=== PATIENT | female | born 1980 | race African-American/Black ===

== ENCOUNTER 2019-12-03 13:32 | Emergency (ER) | payer MEDICAID ==
[~2019-12-03] VITALS: Ht 177.8 cm; Wt 108.9 kg
[2019-12-03] MEDS ORDERED: Ketorolac 30mg Inj IM ONE (13:45)
[2019-12-03] MEDS ORDERED: Methocarbamol 750mg tab ORAL ONE (13:45)
--- NOTE | 2019-12-03 14:00 | NUR ---
ED Nurse Note:pt. was BIBA from home with right ankle pain and deformity, s/p fall on the stairs today, pain meds were given, x-ray done
[2019-12-03] MEDS ORDERED: HYDROcodone/Acetamin 7.5/325 tab ORAL ONE (14:15)
--- NOTE | 2019-12-03 14:44 | Emergency Room Report ---
History of Present Illness General Chief Complaint: Lower Extremity Injury Source: Patient Present Illness HPI 39-year-old female with no nausea medical history brought in by medical advisor due to fall and injury of right ankle. Patient reports that she was getting out of her house that she missed a step and tripped and does not know what happened next. Denies any head injury or loss of consciousness. Temporarily splint is already been applied by paramedics. Obvious deformity noted right ankle. Patient is neurovascularly intact. Has full range of motion of toes. Rates the pain 10 out of 10 without radiation. Patient has bony tenderness in multiple location. Denies other injuries. Denies . Allergies: Coded Allergies: No Known Allergies (Unverified , 12/03/19) COVID-19 Screening Contact w/high risk pt: No Experienced COVID-19 symptoms?: No COVID-19 Testing performed [employer]GER [employer]: Yes - unk month COVID-19 Screening: Negative COVID-19 COVID-19 Testing Source: [facility] Patient History Past Medical History: see triage record Past Surgical History: none Pertinent Family History: none Now: No Immunizations: UTD Reviewed Nursing Documentation: PMH: Agreed; PSxH: Agreed Nursing Documentation-PMH Past Medical History: No History, Except For Hx Asthma: Yes Review of Systems All Other Systems: negative except mentioned in HPI Physical Exam Vital Signs Date Time Temp Pulse Resp B/P (MAP) Pulse Ox O2 Delivery O2 Flow Rate FiO2 12/03/19 13:24 98.4 80 20 113/60 (77) 98 Room Air Sp02 EP Interpretation: reviewed, normal General Appearance: no apparent distress, alert, GCS 15, non-toxic Head: normocephalic, atraumatic Eyes: bilateral eye normal inspection, bilateral eye PERRL ENT: hearing grossly normal, normal pharynx, no angioedema, normal voice Neck: full range of motion, no bony tend, supple/symm/no masses Respiratory: chest non-tender, no wheezing Cardiovascular #1: regular rate, rhythm, no edema Cardiovascular #2: 2+ dorsalis pedis (R), 2+ dorsalis pedis (L) Gastrointestinal: soft Musculoskeletal: back normal, no calf tenderness, tender - Right distal fibula, right mid tibia, right proximal fibula,, other - Patient is neurovascularly intact Neurologic: alert, motor strength/tone normal, oriented x3, sensory intact, responsive, speech normal Psychiatric: judgement/insight normal, memory normal, mood/affect normal, no suicidal/homicidal ideation Skin: no rash Lymphatic: no adenopathy Procedures Splinting Splinting : Consent: Verbal Location: Right lower leg Hand-Made Type: plaster Splint: posterior long Pre-Proc Neuro Vasc Exam: normal Post-Proc Neuro Vasc Exam: normal Patient Tolerated: Well Complications: None Progress With stirrups and crutches Medical Decision Making PA Attestation All my diagnosis and treatment plans were reviewed ad discussed with my supervising physician Dr. Joseph Diagnostic Impression: Primary Impression: Fracture of distal end of right tibia Additional Impressions: Avulsion fracture of distal end of fibula Injury, crush, foot ER Course 39-year-old female with no nausea medical history brought in by medical advisor due to fall and injury of right ankle. Patient reports that she was getting out of her house that she missed a step and tripped and does not know what happened next. Denies any head injury or loss of consciousness. Temporarily splint is already been applied by paramedics. Obvious deformity noted right ankle. Patient is neurovascularly intact. Has full range of motion of toes. Rates the pain 10 out of 10 without radiation. Patient has bony tenderness in multiple location. Denies other injuries. Denies . Ddx considered but are not limited to: ankle sprain, ankle strain, ankle fracture, ankle contusion Vital signs: are WNL, pt. is afebrile H&PE are most consistent with: Displaced fracture of right proximal fibula, mid to distal tibia, and avulsion fracture of right distal fibula ORDERS: Right ankle, foot, knee x-ray, [place] 5, ibuprofen 800 ED INTERVENTIONS: [place] 5, Toradol, Robaxin DISCHARGE: At this time pt. is stable for d/c to home. Will provide printed patient care instructions, and any necessary prescriptions. Care plan and follow up instructions have been discussed with the patient prior to discharge. Patient follow-up with holistic specialist, gave a list of orthopedic clinics that patient can follow-up with contact, patient is ambulated to the wheelchair, splint was applied. Advised patient to return to the emergency room if any worsening symptoms. Take splint off if any pressure underneath the splint. Other X-Ray Diagnostic Results Other X-Ray Diagnostic Results #1: X-Ray ordered: Right ankle # of Views/Limited Vs Complete: 3 View Indication: Pain EP Interpretation: Yes PA Xray: Interpretation reviewed, by supervising , and agrees with findings. Interpretation: other - Fracture of mid to distal tibia, fracture of distal fibula Impression: Other - Displaced fracture of right ankle Electronically Signed by: Vasyl MORENO Scribe Text RIGHT ANKLE, 3 views INDICATION: Trauma COMPARISON: None FINDINGS: 2 views of the right ankle are obtained. Displaced fracture of the distal tibia diaphysis. Bone mineralization is within normal limits. Joint spaces are preserved. . No radio-opaque foreign bodies. IMPRESSION: Acute displaced fracture of the distal right tibia diaphysis. Other X-Ray Diagnostic Results #2: X-Ray ordered: Right foot # of Views/Limited Vs Complete: 3 View Indication: Pain EP Interpretation: Yes PA Xray: Interpretation reviewed, by supervising MD, and agrees with finding s. Interpretation: no dislocation, no soft tissue swelling, no fractures Impression: Other - Displaced fracture of ankle Electronically Signed by: Vasyl MORENO Scribe Text INDICATION: Trauma COMPARISON: None FINDINGS: Fracture of the distal tibia with no acute fracture of the right foot. Bone mineralization is within normal limits. Joint spaces are preserved. Soft tissues within normal limits. No radio-opaque foreign bodies. IMPRESSION: Fracture of the distal tibia with displacement. Metacarpals and carpal bones appear intact. Other X-Ray Diagnostic Results #3: X-Ray ordered: Right knee # of Views/Limited Vs Complete: 3 View Indication: Pain EP Interpretation: Yes PA Xray: Interpretation reviewed, by supervising , and agrees with findings. Interpretation: other - Fracture of proximal right fibula displaced Impression: Other - Displaced fracture of right fibula Electronically Signed by: Vasyl MORENO Scribe Text RIGHT KNEE, one view INDICATION: Trauma COMPARISON: None FINDINGS: 1 view of the right knee are obtained. Acute displaced fracture of the proximal right fibula. Bone mineralization is within normal limits. Joint spaces are preserved. No radio-opaque foreign bodies. IMPRESSION: Acute displaced fracture of the proximal right fibula Last Vital Signs Date Time Temp Pulse Resp B/P (MAP) Pulse Ox O2 Delivery O2 Flow Rate FiO2 12/03/19 13:24 98.4 80 20 113/60 (77) 98 Room Air Disposition: HOME, SELF-CARE Condition: Stable Scripts Ibuprofen (Ibu) 800 Mg Tablet 800 MG PO TID, #30 TAB Prov: Vasyl Henson 12/03/19 Hydrocodone Bit/Acetaminophen 5-325* (NORCO 5-325 TABLET*) 1 Each Tablet 1 TAB ORAL Q6H PRN for FOR PAIN for 5 Days, #20 TAB 0 Refills Prov: Vasyl Henson 12/03/19 Patient Instructions: Ankle Fracture With Rehab-SportsMed, Crush Injury, Fing ers or Toes Additional Instructions: Take medication as directed, follow-up with holistic specialist, keep splint on, if worsening symptoms, return to the emergency Vasyl Henson Dec 03, 2019 14:44
[2019-12-03] MEDS ORDERED: IBU800 MG PO (14:46)
[2019-12-03] MEDS ORDERED: NORCO 5-325 TA1 EAC1 ORAL (14:46)
--- NOTE | 2019-12-03 14:50 | Diagnostic Imaging Report ---
FILM RIGHT ANKLE RIGHT ANKLE, 3 views INDICATION: Trauma COMPARISON: None FINDINGS: 2 views of the right ankle are obtained. Displaced fracture of the distal tibia diaphysis. Bone mineralization is within normal limits. Joint spaces are preserved. . No radio-opaque foreign bodies. IMPRESSION: Acute displaced fracture of the distal right tibia diaphysis.
--- NOTE | 2019-12-03 14:52 | Diagnostic Imaging Report ---
FILM RIGHT KNEE RIGHT KNEE, one view INDICATION: Trauma COMPARISON: None FINDINGS: 1 view of the right knee are obtained. Acute displaced fracture of the proximal right fibula. Bone mineralization is within normal limits. Joint spaces are preserved. No radio-opaque foreign bodies. IMPRESSION: Acute displaced fracture of the proximal right fibula
[2019-12-03 15:00] VITALS: BP 116/63
--- NOTE | 2019-12-03 15:00 | NUR ---
ED Nurse Note:splint was placed on right lower leg by contract technical writer KSchris provided Pt cleared by health care Provider for discharge. DC instructions/prescription was given and explained to pt and verbalized understanding of teachings. All medical deviecs such as ID band removed. Pt is AAO x4,pt. was helped to the car via wheelchair with all personal belongings.
== END 2019-12-03 15:41 | disposition home or self-care (01) ==
LOC: EDBD 13:32 → EMR 13:50
DX: S82.301A Unspecified fracture of lower end of right tibia, initial encounter for closed fracture (principal); S82.831A Other fracture of upper and lower end of right fibula, initial encounter for closed fracture; S97.81XA Crushing injury of right foot, initial encounter; W01.0XXA Fall on same level from slipping, tripping and stumbling without subsequent striking against object, initial encounter; Y92.9 Unspecified place or not applicable
CPT/HCPCS: 29505; 73560; 73600; 73620; 96372; J1885; Z7502; 99283